=== PATIENT | male | born 1965 | race Caucasian/White ===

== ENCOUNTER 2018-09-09 10:04 | Emergency (ER) | payer MEDICAID ==
[~2018-09-09] VITALS: Ht 193 cm; Wt 77.3 kg
[2018-09-09 10:16] VITALS: BP 141/76
[2018-09-09 10:29] LABS: GLUCOSE,POINT OF CARE 374 MG/DL (70-110)
[2018-09-09] MEDS ORDERED: CARV6 PO (10:32)
[2018-09-09] MEDS ORDERED: ATOR40TA28 PO (10:32)
[2018-09-09] MEDS ORDERED: NIFE60TA71 PO (10:32)
[2018-09-09] MEDS ORDERED: SEVEC800 PO (10:32)
[2018-09-09] MEDS ORDERED: DOXY100C PO (10:32)
[2018-09-09] MEDS ORDERED: LINA5TAB PO (10:32)
[2018-09-09] MEDS ORDERED: INSU100V SQ (10:43)
[2018-09-09] MEDS ORDERED: INSLAN SQ (10:43)
[2018-09-09 12:53] LABS: BASOPHILS % (AUTO) 1.2 % (0.0-2.0); EOSINOPHILS % (AUTO) 2.6 % (1.0-6.0); HEMATOCRIT 31.1 % (41-53); HEMOGLOBIN 10.4 g/dL (13.5-17.5); LYMPHOCYTES # (AUTO) 0.9 K/uL (1.0-4.8); LYMPHOCYTES % (AUTO) 15.6 % (22.0-44.0); MEAN CORPUSCULAR HEMOGLOBIN 30.3 pg (26.0-34.0); MEAN CORPUSCULAR HGB CONC 33.6 G/dL (31.0-37.0); MEAN CORPUSCULAR VOLUME 90 fL (80-100); MONOCYTES # (AUTO) 0.7 K/uL (0.1-1.0); MONOCYTES % (AUTO) 11.4 % (2.0-9.0); NEUTROPHILS # (AUTO) 4.2 K/uL (1.8-7.7); NEUTROPHILS % (AUTO) 69.2 % (40.0-70.0); PLATELET COUNT (AUTO) 232 K/uL (150-450); RED BLOOD CELL COUNT(AUTO) 3.45 MIL/uL (4.50-5.90); RED CELL DISTRIBUTION WIDTH 13.2 % (11.5-14.5)
[2018-09-09 13:02] LABS: CALCIUM, TOTAL 8.6 mg/dL (8.8-10.5); CREATININE 6.66 mg/dL (0.60-1.30); POTASSIUM 4.4 mmol/L (3.5-5.1)
[2018-09-09 13:10] LABS: LACTIC ACID 1.1 mmol/L (0.4-2.0)
[2018-09-09 13:17] LABS: ALBUMIN 3.2 g/dL (3.4-5.0); BILIRUBIN,TOTAL 0.5 mg/dL (0.1-1.0); TOTAL PROTEIN, SERUM 7.4 g/dL (6.4-8.2)
[2018-09-09 13:54] LABS: INFLUENZA TYPE A NEGATIVE FOR TYPE A (NEGATIVE); INFLUENZA TYPE B NEGATIVE FOR TYPE B (NEGATIVE)
== END 2018-09-09 14:50 | disposition home or self-care (01) ==
LOC: EMS 10:06
DX: L97.519 Non-pressure chronic ulcer of other part of right foot with unspecified severity (principal); E11.22 Type 2 diabetes mellitus with diabetic chronic kidney disease; I12.0 Hypertensive chronic kidney disease with stage 5 chronic kidney disease or end stage renal disease; N18.6 End stage renal disease; Z79.4 Long term (current) use of insulin; Z99.2 Dependence on renal dialysis
CPT/HCPCS: 83605; 87804